=== PATIENT | female | born 1945 | race Caucasian/White ===

== ENCOUNTER → 2016-11-22 | Outpatient (CLI) | payer OTHER ==
[~2016-11-22] MED LIST: ALBU1AER9; CHOL20007 PO; CLTP PO; CYAN10005 PO; DOCU-94 PO; ESCI1TAB10 PO; ETOD500T95 PO; FLUT1INH INH; METO25TA3 PO; MORP15TA19 PO; OXYC-57 PO; SIMV40TA4 PO; SNM/25100 PO
--- NOTE | 2016-11-22 16:47 | MAMMOGRAPHY REPORT ---
BILATERAL DIGITAL SCREENING MAMMOGRAM WITH CAD: 11/22/2016 CLINICAL HISTORY: Routine screening examination. TECHNIQUE: Bilateral CC and MLO views were obtained. Current study was also evaluated with a Comput er Aided Detection (CAD) system. COMPARISON: Comparison is made to exams dated: 09/01/2010 mammogram, 07/26/2012 mammogram, 09/09/2014 mammogram, and 11/13/2015 mammogram - [facility]. BREAST COMPOSITION: There are scattered areas of fibroglandular density in both breasts. FINDINGS: No suspicious mass, architectural distortion or cluster of microcalcifications is seen. IMPRESSION: ACR BI-RADS CATEGORY 1: NEGATIVE There is no mammographic evidence of malignancy. A 1 year screening mammogram is recommended. The p atient will receive written notification of the results. Approximately 10% of breast cancers are not detected with mammography. A negative mammographic repor t should not delay biopsy if a clinically suggestive mass is present. Shaila Ruiz M.D. ay/:11/22/2016 14:58:01 Attending Technologist: Kady Han RT(R)(M), [facility] Principal Technical Specialist: Rosa Isela Sanabria RT(R)(M), [facility] letter sent: Normal 1/2 BI-RADS Code: ACR BI-RADS Category 1: Negative
== END | disposition home or self-care (01) ==
LOC: C.MAMM 14:33
PROVIDERS: ATTEND Family Medicine
DX: Z12.31 Encounter for screening mammogram for malignant neoplasm of breast (principal)

== ENCOUNTER → 2017-12-02 | Outpatient (CLI) | payer OTHER ==
--- NOTE | 2017-12-05 07:39 | MAMMOGRAPHY REPORT ---
BILATERAL DIGITAL SCREENING MAMMOGRAM TOMOSYNTHESIS WITH CAD: 12/02/2017 CLINICAL HISTORY: Routine screening. Patient has no complaints. TECHNIQUE: Breast tomosynthesis in addition to standard 2D mammography was performed. Current study was also evaluated with a Computer Aided Detection (CAD) system. COMPARISON: Comparison is made to exams dated: 11/22/2016 mammogram, 11/13/2015 mammogram - [facility], 09/09/2014 mammogram, 07/26/2012 mammogram, and 09/01/2010 mammogram. BREAST COMPOSITION: There are scattered areas of fibroglandular density in both breasts. FINDINGS: No suspicious masses, calcifications, or areas of architectural distortion are noted in ei ther breast. There has been no significant interval change compared to prior exams. IMPRESSION: ACR BI-RADS CATEGORY 1: NEGATIVE There is no mammographic evidence of malignancy. A 1 year screening mammogram is recommended. The pa tient will receive written notification of the results. Approximately 10% of breast cancers are not detected with mammography. A negative mammographic report should not delay biopsy if a clinically suggestive mass is present. Tamara Herndon M.D. /:12/02/2017 14:31:54 Cable Puller: Rosa Isela BENAVIDES)(Ced), [facility] letter sent: Normal 1/2 BI-RADS Code: ACR BI-RADS Category 1: Negative
== END | disposition home or self-care (01) ==
LOC: C.MAMM 14:07
PROVIDERS: ATTEND Family Medicine
DX: Z12.31 Encounter for screening mammogram for malignant neoplasm of breast (principal)

== ENCOUNTER → 2018-02-23 | Outpatient (CLI) | payer OTHER ==
[2018-02-23 17:47] LABS: BASO % 0.8 %; BASO ABS # 0.06 K/uL (0-0.2); EOS % 2.7 %; EOS ABS # 0.19 K/uL (0-0.5); HEMATOCRIT 40.8 % (37-47); IG# 0.01 K/uL (0.00-0.02); LYMPH % 27.2 %; LYMPH ABS # 1.94 K/uL (1.2-3.4); MEAN CELL VOLUME 97.8 fL (80-100); MEAN CORPUSCULAR HEMOGLOBIN 31.2 pg (25-34); MEAN CORPUSCULAR HGB CONC 31.9 g/dl (32-36); MEAN PLATELET VOLUME 10.4 fL (7.4-10.4); MONO % 7.4 %; MONO ABS # 0.53 K/uL (0.11-0.59); NEUT % 61.8 %; NEUT ABS # 4.41 K/uL (1.4-6.5); PLATELET COUNT 257 K/uL (130-400); RED CELL DISTRIBUTION WIDTH CV 13.3 % (11.5-14.5); RED CELL DISTRIBUTION WIDTH SD 47.7 fL (36.4-46.3); WHITE BLOOD COUNT 7.14 K/uL (4.8-10.8)
[2018-02-23 18:22] LABS: ALBUMIN 3.7 gm/dl (3.4-5.0); ALT/SGPT 18 U/L (12-78); AST/SGOT 17 U/L (15-37); BLOOD UREA NITROGEN 24 mg/dl (7-18); CARBON DIOXIDE 28 mmol/L (21-32); CREATININE 1.47 mg/dl (0.60-1.20); GLUCOSE 108 mg/dl (70-99); LIPASE 130 U/L (73-393); POTASSIUM 4.2 mmol/L (3.5-5.1); SODIUM 137 mmol/L (136-145)
[2018-02-23 18:25] LABS: ALKALINE PHOSPHATASE 57 U/L (45-117); TOTAL PROTEIN 7.1 gm/dl (6.4-8.2)
== END ==
LOC: C.LABMFLN 16:17
PROVIDERS: ATTEND Family Medicine
DX: R11.0 Nausea (principal)

== ENCOUNTER → 2018-03-03 | Day surgery (SDC) | payer OTHER ==
[2018-03-02 12:46] VITALS: BMI 18.0
--- NOTE | 2018-03-02 14:36 | History and Physical ---
History & Physical Date March 02, 2018. Chief Complaint right foot pain and deformity History of Present Illness The patient is a 73 year old female with complaints of right forefoot pain. She has a hammertoe of the right 5th toe but also pain under the 3rd metatarsal head where a previous foreign body had been removed. She is now being set up for surgical tx after conservative tx had failed. Past Medical/Surgical History PMH: COPD, depression, GERD, hyperlipidemia, insomnia, chronic pain syndrome, palpitations, Parkinson's, spinal stenosis. Past surgical hx: right knee replacement, neck surgery Social hx: Denies alcohol and tobacco use Allergies Coded Allergies: Bupropion (Verified Allergy, Unknown, made patient stay awake for four days, 03/02/18) Zolpidem (Verified Allergy, Unknown, MADE PT FEEL LIKE SHE WAS IN ANOTHER UNIVERSE FOR 3 DAYS, 03/02/18) Codeine (Verified Adverse Reaction, Unknown, nause, 03/02/18) NSAIDs (Verified Adverse Reaction, Unknown, nausea, 03/02/18) Home Medications Scheduled Calcium/Vitamin D (Os-Edouard 500 Plus D), Unknown Dose PO BID Cholecalciferol (Cvs D3), 1 CAP PO QPM Cyanocobalamin (Vitamin B-12), 1,000 MCG PO QPM Escitalopram Oxalate (Lexapro), 20 MG PO QAM Fluticasone Furoate-Vilanterol (Breo Ellipta), 1 INHA INH QAM Ropinirole (Requip), 4 MG PO TID Scheduled PRN Albuterol Hfa (Ventolin Hfa), Unknown Dose INH UD PRN for prn Morphine Sulfate (Morphine Sulfate), 1 TAB PO QAM PRN for Pain Oxycodone/Acetaminophen 10MG/325MG (Percocet 10MG/325MG), 1 TAB PO UD PRN for Pain Polyethylene Glycol 3350 (Miralax), 17 GM PO UD PRN for prn Tizanidine (Zanaflex), 2 MG PO TID PRN for Muscle Spasms Physical Examination Skin: warm/dry, no rash Eyes: normal inspection ENT: normal ENT inspection Head: normocephalic, atraumatic Neck: supple, no adenopathy, trachea midline Respiratory/Chest: lungs clear, normal breath sounds, no respiratory distress Cardiovascular: regular rate, rhythm Abdomen / GI: normal bowel sounds, non tender Extremities: + pertinent finding (right foot: claw toe of the 5th toe with tight extensor tendon, tender at the 5th PIP joint and 5th metatarsal head. Tender at plantar 3rd metatarsal head, possible granuloma.) Neurologic/Psych: no motor/sensory deficits, alert, oriented x 3 Diagnosis Right foot 5th hammertoe, claw toe Right foot foreign body, possible granuloma plantar forefoot Plan of Treatment Recommend a right foot 5th PIP joint DuVries arthroplasty, 5th extensor lengthening, removal of foreign body/granuloma plantar forefoot. All potential risks, benefits, complications, alternatives, and rehab have been discussed and the patient wishes to proceed. She will be scheduled on 03.03.18.
[~2018-03-03] VITALS: Ht 172.7 cm; Wt 55.9 kg
[~2018-03-03] MED LIST changes: -ALBU1AER9; +ASPI81TA28 PO; +ATROPINE SULFATE 0.1 MG/ML 5ML SYR IV PRN; +BACITRACIN 50000 UNIT VIAL ONE; +BUPIVACAINE 0.25% 30 ML VIAL ONE; +BUPIVACAINE/EPINEPHRINE 0.5% MPF 1:200,000 30 ML VIAL ONE; +CALC500C70 PO; +CEFAZOLIN 1000MG IV PUSH 7.5 ML IV SCH; +CHOL100034 PO; -CHOL20007 PO; -CLTP PO; +DEXAMETHASONE SOD INJ 4 MG/ML VIAL ONE; -DOCU-94 PO; -ETOD500T95 PO; +EpHEDrine SULFATE INJ 50 MG/ML AMP IV PRN; +EpINEphrine INJ 1MG/ML AMP 1 MG/ML AMP ONE; +FENTANYL CITRATE INJ 50 MCG/1 ML 2 ML VIAL IV PRN; +FENTANYL CITRATE INJ 50 MCG/1 ML 2 ML VIAL ONE; +LACTATED RINGER'S 1000ML 1,000 ML IV SCH; +LIDOCAINE HCL 2% 2 ML VIAL (20MG/ML) ONE; +MIDAZOLAM HCL 1 MG/ML 2ML VIAL ONE; -MORP15TA19 PO; +ONDANSETRON INJ 2 MG/ML 2 ML VIAL IV PRN; +ONDANSETRON INJ 2 MG/ML 2 ML VIAL ONE; +OXYC-106 PO; +OXYCODONE/ACETAMINOPHEN 5-325 TAB PO PRN; +POLY335019 PO; +PROM25TA9 PO; +PROPOFOL IV EMULSION 10 MG/ML 20 ML VIAL ONE; +ROPI4TAB3 PO; -SIMV40TA4 PO; -SNM/25100 PO; +SODIUM CHLORIDE 0.9% INJ 10 ML VIAL ONE; +TIZA2CAP PO; +VNTHFA/IN INH; +[UNRECOGNIZED DRUG - CODE] PO
[2018-03-03 06:03] VITALS: BP 160/81; PULSE 65; TEMP 36.4; O2SAT 96; Ht 172.7 cm; Wt 55.9 kg
--- NOTE | 2018-03-03 07:12 | History & Physical Bridge Note ---
H&P Re-Evaluation Bridge Note: I have examined the patient, reviewed the History & Physical and in the interval since the performance of the History & Physical I have noted the following changes of clinical significance: No changes noted
--- NOTE | 2018-03-03 08:17 | [facility] Post Operative Brief Note ---
Immediate Operative Summary Operative Date March 03, 2018. Pre-Operative Diagnosis Right foot 5th hammertoe, claw toe 5th toe Right foot foreign body, possible granuloma plantar forefoot Post-Operative Diagnosis Right foot 5th hammertoe, claw toe 5th toe Right foot foreign body, granuloma plantar forefoot Right foot contracture abductor digiti minimi Procedure(s) Performed 1. Right Foot Duvries Procedure 5th Toe 2. Extensor Lengthening 5th Toe 3. Release of Abductor Digiti Minimi 4. Removal of Foreign Body Plantar of Right Foot 5. Removal of Granuloma Plantar of Right Foot Surgeon Dr. Julito Curry Glass Vial Filler Surgeon(s) Zeke Ascencio PA-C Estimated Blood Loss 1 ML Findings Consistent with Post-Op Diagnosis Specimens None Per Surgeon Drains None Anesthesia Type General Regional Complication(s) none Disposition Accompanied Pt To Recover: no Disposition: Recovery Room / PACU
--- NOTE | 2018-03-03 08:17 | DIAGNOSTIC IMAGING REPORT ---
R FOOT 2 VIEWS CLINICAL HISTORY: RT RECONSTRUCTION OF FOOT COMPARISON: None. DISCUSSION: 2 images from the image intensifier demonstrate a linear pin traversing the phalanges and metatarsal of the fifth toe. Alignment appears anatomic. There is no evidence for soft tissue swelling. IMPRESSION: Linear pin traversing the phalanges and metatarsal of the fifth toe. Alignment appears anatomic. The above report was generated using voice recognition software. It may contain grammatical, syntax or spelling errors. Electronically signed by: Shabbir Barlow M.D. 03/03/2018 8:16 AM Dictated Date/Time: 03/03/2018 8:15 AM
--- NOTE | 2018-03-03 08:32 | Discharge Instructions ---
Discharge Instructions Date of Service March 03, 2018. Admission Reason for Admission: Right Foot Hammertoe 5TH Toe, Superficial Foreign Discharge Discharge Diagnosis / Problem: right 5th toe hammertoe Discharge Goals Goal(s): Decrease discomfort, Improve function Activity Recommendations Activity Limitations: per Instructions/Follow-up section Weightbearing Status: Right partial (Heel weightbearing only) . Instructions / Follow-Up Instructions / Follow-Up ACTIVITY RECOMMENDATIONS: Limitations: Heel weight bearing only if able to tolerate. SPECIAL CARE INSTRUCTIONS: * Some drainage onto the dressing is normal and is no cause for alarm. * Some swelling is natural especially after walking. * When resting, keep your foot elevated above the level of your heart. * Call [facility] if you notice: -Increased drainage -Fever over 101 degrees F -Severe constant pain BANDAGE: * Leave bandage/cast in place unless otherwise directed. * Keep bandage/cast dry at all times. PIN CARE: * Leave pins alone. * If pins come loose or fall out, notify physician. FOLLOW UP VISIT WITH DR. TORRES If appointment is not already scheduled: Please call [facility] after you get home today to schedule a follow-up appointment for [address] Torres at . Current Hospital Diet Patient's current hospital diet: Discharge Diet Recommended Diet: Regular Diet Procedures Procedures Performed: 1. Right Foot Duvries Procedure 5th Toe 2. Extensor Lengthening 5th Toe 3. Release of Abductor Digiti Minimi 4. Removal of Foreign Body Plantar of Right Foot 5. Removal of Granuloma Plantar of Right Foot Pending Studies Studies pending at discharge: no Medical Emergencies . Who to Call and When: Medical Emergencies: If at any time you feel your situation is an emergency, please call 911 immediately. . Non-Emergent Contact Non-Emergency issues call your: Surgeon Call Non-Emergent contact if: temperature is above 101, your pain is not controlled, your pain is worsening . "Provider Documentation" section prepared by Zeke Ascencio. .
--- NOTE | 2018-03-03 09:04 | Anesthesiology Progress Note ---
Anesthesia Post Op Note Date & Time March 03, 2018 at 09:04 Vital Signs Pain Intensity: 0 Vital Signs Past 12 Hours Date Time Temp Pulse Resp B/P (MAP) Pulse Ox O2 Delivery O2 Flow Rate FiO2 03/03/18 08:55 36.2 70 14 159/87 98 Room Air 03/03/18 08:45 69 14 169/89 98 Oxymask 10 03/03/18 08:35 60 14 167/66 100 Oxymask 10 03/03/18 08:29 36.3 63 14 167/93 100 Oxymask 10 03/03/18 06:03 36.4 65 16 160/81 (107) 96 Room Air Notes Mental Status: alert / awake / arousable, participated in evaluation Pt Amnestic to Procedure: Yes Nausea / Vomiting: adequately controlled Pain: adequately controlled Airway Patency, RR, SpO2: stable & adequate BP & HR: stable & adequate Hydration State: stable & adequate Anesthetic Complications: no major complications apparent Block working well in pacu
[2018-03-03 09:15] VITALS: BP 164/80; PULSE 71; TEMP 36.5; O2SAT 93
--- NOTE | 2018-03-03 09:17 | DIAGNOSTIC IMAGING REPORT ---
R FOOT MIN 3 VIEWS ROUTINE CLINICAL HISTORY: Postoperative evaluation. COMPARISON: Right foot fluoroscopic images performed earlier today. FINDINGS: Note is made of postoperative findings within the proximal interphalangeal joint of the right toe with pin fixation. Alignment is anatomic. There is no fracture or unexpected radiopaque foreign body. IMPRESSION: Expected postoperative findings following hammertoe correction of the right fifth toe. Electronically signed by: Marvel Harrison M.D. 03/03/2018 9:15 AM Dictated Date/Time: 03/03/2018 9:12 AM
[2018-03-03 09:45] VITALS: BP 131/63; PULSE 78; TEMP 36.5; O2SAT 94
--- NOTE | 2018-03-03 11:31 | OPERATIVE REPORT ---
DATE OF OPERATION: 03/03/2018 PREOPERATIVE DIAGNOSES: 1. Right fifth hammertoe. 2. Clawtoe deformity, fifth toe. 3. Extensor contracture of the fifth toe. 4. Contracture of the abductor digiti minimi. 5. Foreign body, plantar right foot. 6. Granuloma plantar, right foot. POSTOPERATIVE DIAGNOSES: 1. Right fifth hammertoe. 2. Clawtoe deformity, fifth toe. 3. Extensor contracture of the fifth toe. 4. Contracture of the abductor digiti minimi. 5. Foreign body, plantar right foot. 6. Granuloma plantar, right foot. PROCEDURES: 1. Right fifth DuVries arthroplasty. 2. Fifth toe extensor lengthening. 3. Release of the abductor digiti minimi. 4. Removal of foreign body at the plantar aspect of the right foot. 5. Excision of granuloma plantar aspect of the right foot. SURGEON: Julito Curry DO BATTERY WRECKER OPERATOR: Zeke Ascencio PA-C who was present for patient positioning, sterile prep and drape, management of retractors and instruments. He was present through the critical portions of the case including wound closure, application of sterile dressing and transport of the patient to recovery. ANESTHESIA: General with popliteal block, right lower extremity. SPECIMENS: None. DRAINS: None. COMPLICATIONS: None. BLOOD LOSS: 1 mL PERTINENT HISTORY: This is a 73-year-old female who suffers from parkinsonism and has had chronic progressive clawing and deformity of her right fifth toe with abduction and difficulty with shoe wear. She also apparently stepped on some type of foreign body, which lodged within the plantar aspect of right foot earlier this week. She was seen in clinic and then scheduled for surgery as indicated. All potential risks, benefits, complications, alternatives, rehab, potential for incomplete relief of symptoms, need for further procedure, DVT, PE, , persistent pain, swelling, scarring, weakness, neurovascular injury, wound complications, hardware failure, nonunion, malunion were discussed with the patient. The patient decided to proceed with the procedure as indicated. DESCRIPTION OF PROCEDURE: The patient had a popliteal block in preop holding area, was taken to the operative suite, placed supine on the operating room table. I reviewed the consent and identification of proper operative site, the patient was anesthetized, LMA was placed. Right lower extremity was then sterilely prepped and draped in the usual fashion, elevated and exsanguinated with bandage and an Esmarch tourniquet was applied over sterile surgical towel level at the right ankle. Next, a #15 blade scalpel was used to make transverse incision over the proximal interphalangeal joint of the right fifth toe. The incision was deepened through the skin, extensor and the joint capsule. Next, the collateral ligaments were sacrificed with a #15 blade scalpel and the bone biting rongeur was then used to resect the distal aspect of the proximal phalanx of the fifth toe. Once this was completed, a #15 blade scalpel was then used to make an incision in the dorsum of the foot over the fifth extensor tendon extending over the fifth metatarsophalangeal joint. This incision was then deepened through the subcutaneous tissue. Meticulous hemostasis was achieved with cautery. Full thickness skin flaps were developed. The extensor tendon was identified and then split in its midsubstance with an #11 blade scalpel and then a Z lengthening was then performed. The fifth metatarsophalangeal joint capsule was then released with a tenotomy scissor and then the abductor digiti minimi was then identified and then released with a #15 blade scalpel, releasing the abduction contracture of the fifth metatarsophalangeal joint. Next, the fifth toe was held in corrected alignment and slightly plantar flexed and the extensor tendon was then reapproximated in its lengthened condition with interrupted horizontal mattress 3-0 Mersilene sutures. Next, the wound was irrigated with sterile normal saline. A 0.045 inch K-wire was driven out the tip of the fifth toe and then in a retrograde fashion under live fluoroscopic assistance, the 0.045 inch K-wire was driven into the proximal phalanx of the toe and then into the fifth metatarsal to correctly align the fifth toe. The distal aspect of the pin was then bent and cut with a wire puller and then capped with a small plastic cap. The alignment had been improved and the skin incisions then closed using interrupted 4-0 nylon sutures. This was then followed by final radiographs AP and lateral projections of the fifth toe. Next, a #15 blade scalpel was used to make a plantar incision centered over the hard fibrous mass between the third and fourth metatarsal heads. This incision was then deepened through the subcutaneous tissue and a hard either plastic, glass or metallic foreign body was then encountered measuring approximately 1-1.5 mm. This was then removed and there was noted to be an adjacent granuloma, which was then excised with a #15 blade scalpel. The wound was copiously irrigated with sterile saline. There was no abnormal-appearing tissue surrounding. There was no invasion into the surrounding tissues or the skin. Next, skin was then closed using interrupted 4-0 nylon sutures. A sterile compressive forefoot dressing was applied overwrapped with a Coban. The patient was placed in a postoperative shoe. Tourniquet was released. The patient was awakened and taken to recovery in stable condition. I attest to the content of the Intraoperative Record and any orders documented therein. Any exception s are noted below.
== END | disposition home or self-care (01) ==
LOC: C.ACU 05:24
PROVIDERS: ATTEND Orthopaedic Surgery Sports Medicine
DX: M20.41 Other hammer toe(s) (acquired), right foot (principal); Q66.89 Other specified congenital deformities of feet; M24.574 Contracture, right foot; M62.471 Contracture of muscle, right ankle and foot; S90.851A Superficial foreign body, right foot, initial encounter; L92.9 Granulomatous disorder of the skin and subcutaneous tissue, unspecified; X58.XXXA Exposure to other specified factors, initial encounter; J44.9 Chronic obstructive pulmonary disease, unspecified; I10 Essential (primary) hypertension; Z88.1 Allergy status to other antibiotic agents; K21.9 Gastro-esophageal reflux disease without esophagitis; F32.9 Major depressive disorder, single episode, unspecified; G20 Parkinson's disease; Z96.651 Presence of right artificial knee joint; Z98.890 Other specified postprocedural states

== ENCOUNTER → 2018-03-23 | Outpatient (CLI) | payer OTHER ==
[~2018-03-23] MED LIST changes: -ATROPINE SULFATE 0.1 MG/ML 5ML SYR IV PRN; -BACITRACIN 50000 UNIT VIAL ONE; -BUPIVACAINE 0.25% 30 ML VIAL ONE; -BUPIVACAINE/EPINEPHRINE 0.5% MPF 1:200,000 30 ML VIAL ONE; -CEFAZOLIN 1000MG IV PUSH 7.5 ML IV SCH; -DEXAMETHASONE SOD INJ 4 MG/ML VIAL ONE; -EpHEDrine SULFATE INJ 50 MG/ML AMP IV PRN; -EpINEphrine INJ 1MG/ML AMP 1 MG/ML AMP ONE; -FENTANYL CITRATE INJ 50 MCG/1 ML 2 ML VIAL IV PRN; -FENTANYL CITRATE INJ 50 MCG/1 ML 2 ML VIAL ONE; -LACTATED RINGER'S 1000ML 1,000 ML IV SCH; -LIDOCAINE HCL 2% 2 ML VIAL (20MG/ML) ONE; -MIDAZOLAM HCL 1 MG/ML 2ML VIAL ONE; -ONDANSETRON INJ 2 MG/ML 2 ML VIAL IV PRN; -ONDANSETRON INJ 2 MG/ML 2 ML VIAL ONE; -OXYC-106 PO; -OXYCODONE/ACETAMINOPHEN 5-325 TAB PO PRN; -PROPOFOL IV EMULSION 10 MG/ML 20 ML VIAL ONE; -SODIUM CHLORIDE 0.9% INJ 10 ML VIAL ONE
== END | disposition home or self-care (01) ==
LOC: C.MAMM 15:12
PROVIDERS: ATTEND Family Medicine
DX: M81.0 Age-related osteoporosis without current pathological fracture (principal)

== ENCOUNTER → 2018-06-01 | Outpatient (CLI) | payer OTHER ==
[~2018-06-01] MED LIST changes: -ASPI81TA28 PO; +ONDA4TAB46 PO
[2018-06-01 18:05] LABS: ALBUMIN 3.7 gm/dl (3.4-5.0); BLOOD UREA NITROGEN 19 mg/dl (7-18); CALCIUM 9.2 mg/dl (8.5-10.1); CARBON DIOXIDE 31 mmol/L (21-32); CREATININE 1.15 mg/dl (0.60-1.20); GLUCOSE 97 mg/dl (70-99); PHOSPHORUS 3.9 mg/dl (2.5-4.9); POTASSIUM 4.2 mmol/L (3.5-5.1); SODIUM 137 mmol/L (136-145)
--- NOTE | 2018-06-12 12:52 | CODING QUERY NO DIAGNOSIS ---
1944 Valid Physician Order Needed A valid physician order must be submitted in order to properly bill for the service(s) provided, including date of service(s), valid diagnosis, and physician signature. If these tests are done on a recurring basis the original physican order must be submitted in order to code and bill for the service(s) provided. Please fax us the original, signed physician order so that we may expedite billing to [phone] DOS 06/01/18 * RENAL PROFILE Thank you [facility] Information Management
== END | disposition home or self-care (01) ==
LOC: C.LABMFLN 14:59
PROVIDERS: ATTEND Family Medicine
DX: R11.0 Nausea (principal)